=== PATIENT | female | born 1990 | race Caucasian/White ===

== ENCOUNTER 2022-06-25 08:07 | Inpatient (IN) ==
[~2022-06-25 08:07] MED LIST: Azithromycin 500 MG in 0.9 % Sodium Chloride 250 ML IVPB PRN; Famotidine 20 MG/2 ML VIAL IVP PRN; Metoclopramide 10 MG/2 ML VIAL IVP PRN; Naloxone 0.4 MG/ML INJ IVP PRN; Ondansetron 4 MG/2 ML VIAL IVP PRN
[2022-06-25] MEDS ORDERED: Ringers Solution, Lactated 1,000 ML IVC SCH (08:15)
[2022-06-25] MEDS ORDERED: Penicillin G Potassium 5,000,000 UNIT in 0.9 % Sodium Chloride Mini Bag 100 ML IVPB ONE (08:29)
[2022-06-25] MEDS ORDERED: EPHEDrine sulfate 50 MG/10 ML VIAL IVP PRN (08:40)
[2022-06-25] MEDS ORDERED: Epidural Premix (fent/bupiv) 110 ML EP SCH (08:45)
[2022-06-25] MEDS ORDERED: *HR* Nalbuphine 10 MG/ML AMPUL ONE (08:55)
[2022-06-25] MEDS ORDERED: *HR* Nalbuphine 10 MG/ML AMPUL IV PRN (09:00)
[2022-06-25 09:13] LABS: Alanine Aminotransferase 12 Units/L (7-52); Aspartate Amino Transferase 23 Units/L (13-39); BUN/Creatinine Ratio 8 (6-26); Blood Urea Nitrogen 5 mg/dL (6-20); Lactate Dehydrogenase 150 Units/L (140-271); Uric Acid 5.6 mg/dL (2.3-7.6)
[2022-06-25 09:23] LABS: Basophils # 0.1 K/mcL (0.0-0.2); Basophils % 0.4 %; Eosinophils # 0.1 K/mcL (0.0-0.6); Hematocrit 42.3 % (35.3-44.9); Hemoglobin 13.8 g/dL (11.5-15.4); Immature Granulocytes % 1.9 % (0-4); Lymphocytes # 1.8 K/mcL (0.6-4.6); Lymphocytes % 15.4 %; Mean Corpuscular HGB Conc 32.6 g/dL (31.6-35.5); Mean Corpuscular Hemoglobin 29.4 pg (28.0-33.3); Mean Platelet Volume 13.6 fL (9.4-12.4); Monocytes # 0.8 K/mcL (0.0-1.3); Monocytes % 6.8 %; Neutrophils # 8.7 K/mcL (1.6-8.9); Platelet Count 166 K/mcL (140-400); Red Cell Distribution Width 13.4 % (11.5-14.5); Segmented Neutrophils % 74.5 %; White Blood Count 11.7 K/mcL (4.3-11.1)
[2022-06-25 09:38] LABS: Creatinine,Urine 129 mg/dL; Protein/Creatinine Ratio,Urine 0.38 mg/mg (0.00-0.20)
[2022-06-25 09:50] LABS: Amphetamine Screen,Urine Negative ng/mL (Cutoff=1000); Barbiturate Screen,Urine Negative ng/mL (Cutoff=200)
[2022-06-25 09:52] LABS: Benzodiazepines Screen,Urine Negative ng/mL (Cutoff=300); Cannabinoid Screen,Urine Positive ng/mL (Cutoff = 50); Cocaine Screen,Urine Negative ng/mL (Cutoff= 300); Opiate Screen,Urine Negative ng/mL (Cutoff=300); Phencyclidine Screen,Urine Positive ng/mL (Cutoff=25)
[2022-06-25] MEDS ORDERED: Oxytocin 30 UNIT/503 ML BAG IVC ONE (11:35)
[2022-06-25] MEDS ORDERED: Lanolin 7 G OINT...G. TP PRN (16:09)
[2022-06-25] MEDS ORDERED: Ondansetron ODT 4 MG TAB.RAPDIS SL PRN (16:09)
[2022-06-25] MEDS ORDERED: Oxytocin 30 UNIT/503 ML BAG IVC SCH (16:09)
[2022-06-25] MEDS ORDERED: Benzocaine/Menthol 56 GM AEROSOL SPRAY TP PRN (16:09)
[2022-06-25] MEDS ORDERED: Measles/Mumps/Rubella Vacc 0.5 ML VIAL SQ PRN (16:09)
[2022-06-25] MEDS: Ibuprofen 600 MG TABLET PO SCH ×2 (16:19→21:53)
[2022-06-25] MEDS: Acetaminophen 325 MG TABLET PO SCH ×2 (16:19→21:53)
[2022-06-26] MEDS: Acetaminophen 325 MG TABLET PO SCH ×2 (03:59→11:47)
[2022-06-26] MEDS: Ibuprofen 600 MG TABLET PO SCH ×2 (04:00→11:47)
[2022-06-26 05:51] VITALS: O2SAT 98
[2022-06-26 08:06] VITALS: BP 124/87; PULSE 66; TEMP 97.6
[2022-06-26] MEDS ORDERED: Loratadine 10 MG TABLET PO SCH (09:00)
[2022-06-26] MEDS ORDERED: lamoTRIgine 100 MG TABLET PO SCH (09:00)
[2022-06-26] MEDS ORDERED: Venlafaxine XR (24 HR) 150 MG CAP.ER.24H PO SCH (09:00)
[2022-06-26] MEDS ORDERED: Prenatal Vit/FA 1 EACH TABLET PO SCH ×2 (09:00)
== END 2022-06-26 11:49 | disposition home or self-care (01) | DRG 560 ==
LOC: 1NENULAB → 1NENUOBS 14:29
PROVIDERS: ADMIT Registered Nurse; ATTEND Registered Nurse